=== PATIENT | male | born 2000 | race Caucasian/White ===

== ENCOUNTER 2022-12-19 07:51 | Emergency (ER) | payer SELFPAY ==
[~2022-12-19] VITALS: Ht 182.9 cm; Wt 67.2 kg
[2022-12-19] MEDS ORDERED: LORazepam 2 MG/ML 1ML VIAL IV STA (08:03)
[2022-12-19] MEDS ORDERED: NS 1,000 ML IV SCH (08:05)
[2022-12-19 08:53] LABS: AMPHETAMINES LEVEL URINE NEGATIVE (NEGATIVE); BARBITURATES URINE NEGATIVE (NEGATIVE); BENZODIAZEPINES URINE NEGATIVE (NEGATIVE); METHADONE URINE NEGATIVE (NEGATIVE); OPIATES URINE NEGATIVE (NEGATIVE); PHENCYCLIDINE URINE NEGATIVE (NEGATIVE)
[2022-12-19 08:54] LABS: CANNABINOIDS URINE POSITIVE (NEGATIVE); COCAINE METABOLITE URINE POSITIVE (NEGATIVE)
[2022-12-19 12:17] VITALS: BP 113/69
== END 2022-12-19 12:29 | disposition home or self-care (01) ==
LOC: EDBD 07:51 → M ED 07:51
DX: F14.129 Cocaine abuse with intoxication, unspecified (principal); R00.0 Tachycardia, unspecified
CPT/HCPCS: 80307; 93005; 93041; 94760; 96361; 96374; 99285; J2060